=== PATIENT | male | born 1985 | race Caucasian/White ===

== ENCOUNTER 2017-10-20 16:52 | Emergency (ER) | payer BC, SELFPAY ==
--- NOTE | 2017-10-20 17:00 | XR_ITS ---
XR lumbar spine min 4V Ordering Physician: Joey Amaya Patient Age: 32 years: Male HISTORY: ITS.REASON: LOW BACK PAIN. BENT OVER-COULDNT STAND BACK UP TECHNIQUE: Five-view lumbar spine series. COMPARISON previous lumbar spine series dated 01/27/2015. FINDINGS :The vertebral bodies are intact. No compression fractures. No acute findings. . L2/3. Mild disc space narrowing is similar if not slightly more pronounced than on 2015 exam. Scant levocurvature at this level also noted. Subtle 1-2 mm retrolisthesis of L2 on L3 early intramarginal osteophytes. The other disc spaces are fairly well-maintained. Only borderline narrowing at L5/S1 disc. Pedicles intact. Transverse processes SI joints sacrum IMPRESSION: ...... No fracture. No acute findings. . Mild degenerative disc space narrowing & changes at L2/3 again noted. Similar to 2014 lumbar spine series with perhaps very slight additional disc space narrowing at this level
[2017-10-20 17:05] VITALS: BMI 36.9
[2017-10-20 17:29] VITALS: BP 113/74; PULSE 74; RESP 18; TEMP 36.6; O2SAT 100; BMI 36.9
--- NOTE | 2017-10-20 17:46 | HMH.EDUTC ---
[facility] – [place] Disposition Clinical Impression: Low back strain Qualifiers: Encounter type: initial encounter Qualified Code(s): S39.012A - Strain of muscle, fascia and tendon of lower back, initial encounter Disposition: Home, Self-Care Condition on Discharge: Good Instructions: Naproxen, Cyclobenzaprine, DI for Back Strain or Sprain, DI for Muscle Spasm Additional Instructions: * naproxen every 12 hours with meals as needed for pain/inflammation. * Remember you had a toradol shot, similiar anti-inflammatory in clinic * No additional anti-inflammatories like motrin, aleve, advil with the above amount of ibuprofen. You CAN still take Tylenol every 4 hours as needed if you need something more for pain. * Ice x15-20 mins 3-4 times a day for first 48 hours after the initial injury followed by moist heat x15-20 mins 3-4 times a day to affected area * Muscle relaxer every 8 hours as needed for muscle spasms but remember, it WILL cause drowsiness. You can NOT take it and drive, operate machinary or care for small children * You had norflex in clinic, similiar muscle relaxer. No additional muscle relaxer for 6-8 hours. * Keep this area active. No movement leads to more stiffness. However, take it easy too and avoid heavy lifting, pushing, pulling. Prescriptions: Cyclobenzaprine HCl [Flexeril 10mg tablet] 10 mg PO Q8HP PRN #15 tab PRN Reason: Muscle Spasm Naproxen 500 mg PO BID #28 tab Referrals: Juan Akhtar MD [Primary Care Provider] - (Immediately for new or worsening symptoms but also if no noticeable improvement over 3-5 days. ) Forms: Work/School Release Medical Decision Making Vital Signs: 10/20/17 17:29 10/20/17 18:30 Temperature 97.8 F 97 F L Temperature Source Temporal Artery Scan Pulse Rate 68 Pulse Rate [Right Radial] 74 Respiratory Rate 18 20 Blood Pressure 117/77 Blood Pressure [Right Arm] 113/74 Blood Pressure Mean [Right Arm] 87 Blood Pressure Source [Right Arm] Automatic Cuff Blood Pressure Position [Right Arm] Sitting 02 Sat by Pulse Oximetry 100 Oxygen Delivery Method Room Air Orders (Tests/Meds): ED MEDICATIONS Discontinued Medications Generic Name Dose Route Start Last Admin Trade Name Freq PRN Reason Stop Dose Admin Ketorolac Tromethamine 60 mg 10/20/17 17:06 10/20/17 17:28 Toradol 60mg/2ml Vial IM 10/20/17 17:07 60 mg ONCE ONE Administration Orphenadrine Citrate 60 mg 10/20/17 17:07 10/20/17 17:28 Norflex 60mg/2ml Vial IM 10/20/17 17:08 60 mg ONCE ONE Administration ORDERS Category Date Time Status Lumbar spine minimum 4 views [XR lumbar spine min 4V] Exams 10/20/17 17:00 Taken Stat - Radiology Data #1 Image(s): L-Spine Image Reviewed: Yes I reviewed the patient's radiology image w/the ED provider Preliminary Findings: Normal/NAD (per Dr. Akhtar, ER ) - Ricky Inquiry Pt receiving controlled substance: No - Reevaluation(s) Reevaluation #1: at discharge, reports pain somewhat better [facility] [place] HPI - General Stated complaint: Lower back pain, no accident Time Seen by Provider: 10/20/17 17:05 Mode of Arrival: Wheelchair Source of Information: Patient Limitations: No Limitations Description of Symptoms (Recalled from Triage Doc. by RN): pt states he bent over and raised back up and couldn't move his back. pt c/o lower back pain. HEENT Symptoms (Recalled from RN notes): No Resp Symptoms (Recalled from RN notes): No Skin Symptoms (Recalled from RN notes): No MS Symptoms (Recalled from RN notes): Yes (lower back pain) Functional Status (Recalled from RN notes): na - History of Present Illness Provider Complaint: c/o left sided low back pain radiating into left hip and down left leg since cleaning out fence brush this morning around 11am. States he was squatting and working, set the chainsaw to his side and stood up but the minute he stood up, sharp pain left lower back that shot down left leg and took me to my knees . To
--- NOTE | 2017-10-20 17:57 | ED_ITS ---
[facility] – [place] Disposition Clinical Impression: Low back strain Qualifiers: Encounter type: initial encounter Qualified Code(s): S39.012A - Strain of muscle, fascia and tendon of lower back, initial encounter Disposition: Home, Self-Care Condition on Discharge: Good Instructions: Naproxen, Cyclobenzaprine, DI for Back Strain or Sprain, DI for Muscle Spasm Additional Instructions: * naproxen every 12 hours with meals as needed for pain/inflammation. * Remember you had a toradol shot, similiar anti-inflammatory in clinic * No additional anti-inflammatories like motrin, aleve, advil with the above amount of ibuprofen. You CAN still take Tylenol every 4 hours as needed if you need something more for pain. * Ice x15-20 mins 3-4 times a day for first 48 hours after the initial injury followed by moist heat x15-20 mins 3-4 times a day to affected area * Muscle relaxer every 8 hours as needed for muscle spasms but remember, it WILL cause drowsiness. You can NOT take it and drive, operate machinary or care for small children * You had norflex in clinic, similiar muscle relaxer. No additional muscle relaxer for 6-8 hours. * Keep this area active. No movement leads to more stiffness. However, take it easy too and avoid heavy lifting, pushing, pulling. Prescriptions: Cyclobenzaprine HCl [Flexeril 10mg tablet] 10 mg PO Q8HP PRN #15 tab PRN Reason: Muscle Spasm Naproxen 500 mg PO BID #28 tab Referrals: Juan Akhtar MD [Primary Care Provider] - (Immediately for new or worsening symptoms but also if no noticeable improvement over 3-5 days. ) Forms: Work/School Release Medical Decision Making Vital Signs: 10/20/17 17:29 10/20/17 18:30 Temperature 97.8 F 97 F L Temperature Source Temporal Artery Scan Pulse Rate 68 Pulse Rate [Right Radial] 74 Respiratory Rate 18 20 Blood Pressure 117/77 Blood Pressure [Right Arm] 113/74 Blood Pressure Mean [Right Arm] 87 Blood Pressure Source [Right Arm] Automatic Cuff Blood Pressure Position [Right Arm] Sitting 02 Sat by Pulse Oximetry 100 Oxygen Delivery Method Room Air Orders (Tests/Meds): ED MEDICATIONS Discontinued Medications Generic Name Dose Route Start Last Admin Trade Name Freq PRN Reason Stop Dose Admin Ketorolac Tromethamine 60 mg 10/20/17 17:06 10/20/17 17:28 Toradol 60mg/2ml Vial IM 10/20/17 17:07 60 mg ONCE ONE Administration Orphenadrine Citrate 60 mg 10/20/17 17:07 10/20/17 17:28 Norflex 60mg/2ml Vial IM 10/20/17 17:08 60 mg ONCE ONE Administration ORDERS Category Date Time Status Lumbar spine minimum 4 views [XR lumbar spine min 4V] Exams 10/20/17 17:00 Taken Stat - Radiology Data #1 Image(s): L-Spine Image Reviewed: Yes I reviewed the patient's radiology image w/the ED provider Preliminary Findings: Normal/NAD (per Dr. Akhtar, ER ) - Ricky Inquiry Pt receiving controlled substance: No - Reevaluation(s) Reevaluation #1: at discharge, reports pain somewhat better [facility] [place] HPI - General Stated complaint: Lower back pain, no accident Time Seen by Provider: 10/20/17 17:05 Mode of Arrival: Wheelchair Source of Information: Patient Limitations: No Limitations Description of Symptoms (Recalled from Triage Doc. by RN): pt states he bent over and raised back up and couldn't move his back.
[2017-10-20 18:30] VITALS: BP 117/77; PULSE 68; RESP 20; TEMP 36.1; O2SAT 99
== END 2017-10-20 18:32 | disposition home or self-care (01) ==
PROVIDERS: Emergency Provider Nurse Practitioner Family; Family Provider Emergency Medicine; PCP Emergency Medicine
DX: S39.012A Strain of muscle, fascia and tendon of lower back, initial encounter (principal); X50.1XXA Overexertion from prolonged static or awkward postures, initial encounter; F17.210 Nicotine dependence, cigarettes, uncomplicated
CPT/HCPCS: 72110; 96372; 99202